=== PATIENT | male | born 1970 | race Two or more races ===

== ENCOUNTER 2018-06-20 09:38 | Emergency (ER) | payer SELFPAY ==
[~2018-06-20] VITALS: Ht 162.6 cm; Wt 86.0 kg
[2018-06-20] MEDS ORDERED: VISCOUS LIDOCAINE 2% 15 ML UDC MM STA (10:03)
[2018-06-20] MEDS ORDERED: ACETAMINOPHEN WITH CODEINE 300/30MG TABLET PO ONE (11:45)
[2018-06-20 11:55] VITALS: BP 127/73
== END 2018-06-20 11:57 | disposition home or self-care (01) ==
LOC: ER 10:04
DX: K62.89 Other specified diseases of anus and rectum (principal)
CPT/HCPCS: 99283